=== PATIENT | female | born 1985 | race Caucasian/White ===

== ENCOUNTER → 2016-10-28 | Outpatient (CLI) | payer OTHER, MEDICAID ==
[~2016-10-28] MED LIST: AUGM875T27 PO; CYMB60CA3 PO; EMOQTAB PO; HYDR200T3 PO; LEXA1TAB PO; MYLI40DR PO; NEUR100C PO; OXYC15TA76 PO; PROA1AER INH; SING10TA32 PO; TRAZ100T4 PO; TYLE167L PO; ZYRT10TA2 PO; [UNRECOGNIZED DRUG - CODE] PO
[2016-10-28 20:21] LABS: COMPLEMENT C3 136 MG/DL (90-180); COMPLEMENT C4 26.7 MG/DL (10-40); IMMUNOGLOBULIN G 1390 MG/DL (681-1648); IMMUNOGLOBULIN M 52.6 MG/DL (40-230)
[2016-10-28 20:53] LABS: IMMUNOGLOBULIN E < 3.6 IU/ML (<100)
[2016-11-02 08:45] LABS: ALPHA 1 ANTITRYPSIN 249 mg/dL (90-200); D001-IgE D pteronyssinus <0.10 kU/L (Class 0); E001-IgE Cat Epith/Dander < 0.10 kU/L (Class 0); E005-IgE Dog Dander < 0.10 kU/L (Class 0); F002-IgE Milk < 0.10 kU/L (Class 0); F004-IgE Wheat < 0.10 kU/L (Class 0); F013-IgE Peanut < 0.10 kU/L (Class 0); F014-IgE Soybean < 0.10 kU/L (Class 0); F026-IgE Pork < 0.10 kU/L (Class 0); F027-IgE Beef < 0.10 kU/L (Class 0); F245-IgE Egg, Whole < 0.10 kU/L (Class 0); FX02-IgE Food Mix (Sea Foods) Negative (.); G002-IgE Bermuda Grass < 0.10 kU/L (Class 0); G008-IgE Kentucky Bluegrass < 0.10 kU/L (Class 0); M001-IgE Penicillium chrysogen < 0.10 kU/L (Class 0); M002 IgE Cladosporium herbaru < 0.10 kU/L (Class 0); M003 IgE Aspergillus fumigatu < 0.10 kU/L (Class 0); M006-IgE Alternaria alternata < 0.10 kU/L (Class 0); T001-IgE Maple/Box Elder < 0.10 kU/L (Class 0); T003-IgE Common Silver Birch < 0.10 kU/L (Class 0); T007-IgE Oak, White < 0.10 kU/L (Class 0); T008-IgE Elm, American < 0.10 kU/L (Class 0); T015-IgE Ash, White < 0.10 kU/L (Class 0); T041-IgE Hickory, White < 0.10 kU/L (Class 0); W001-IgE Ragweed, Short < 0.10 kU/L (Class 0); W009-IgE Plantain, English < 0.10 kU/L (Class 0); W014-IgE Pigweed, Rough < 0.10 kU/L (Class 0); W018-IgE Sheep Sorrel < 0.10 kU/L (Class 0)
== END ==
LOC: M WUC 17:30
PROVIDERS: ATTEND Allergy & Immunology
DX: J30.89 Other allergic rhinitis (principal); J30.2 Other seasonal allergic rhinitis

== ENCOUNTER → 2018-07-16 | Outpatient (CLI) | payer OTHER, MEDICAID ==
[2018-07-16 19:15] LABS: GOLD SPEC TUBE RECIEVED
[2018-07-16 19:54] LABS: COMPLEMENT C3 146 MG/DL (90-180); IMMUNOGLOBULIN G 1360 MG/DL (681-1648); IMMUNOGLOBULIN M 49 MG/DL (40-230)
[2018-07-16 19:55] LABS: IMMUNOGLOBULIN E 7.5 IU/ML (<100)
[2018-07-20 00:07] LABS: ALPHA 1 ANTITRYPSIN 186 mg/dL (90-200)
[2018-07-20 00:07] LABS: D001-IgE D pteronyssinus <0.10 kU/L (Class 0); E001-IgE Cat Epith/Dander < 0.10 kU/L (Class 0); E005-IgE Dog Dander < 0.10 kU/L (Class 0); F002-IgE Milk < 0.10 kU/L (Class 0); F004-IgE Wheat < 0.10 kU/L (Class 0); F013-IgE Peanut < 0.10 kU/L (Class 0); F014-IgE Soybean < 0.10 kU/L (Class 0); F026-IgE Pork < 0.10 kU/L (Class 0); F027-IgE Beef < 0.10 kU/L (Class 0); F245-IgE Egg, Whole < 0.10 kU/L (Class 0); FX02-IgE Food Mix (Sea Foods) Negative (.); G002-IgE Bermuda Grass < 0.10 kU/L (Class 0); G008-IgE Kentucky Bluegrass < 0.10 kU/L (Class 0); M001-IgE Penicillium chrysogen < 0.10 kU/L (Class 0); M002 IgE Cladosporium herbaru < 0.10 kU/L (Class 0); M003 IgE Aspergillus fumigatu < 0.10 kU/L (Class 0); M006-IgE Alternaria alternata < 0.10 kU/L (Class 0); T001-IgE Maple/Box Elder < 0.10 kU/L (Class 0); T003-IgE Common Silver Birch < 0.10 kU/L (Class 0); T006-IgE Cedar, Mountain < 0.10 kU/L (Class 0); T007-IgE Oak, White < 0.10 kU/L (Class 0); T008-IgE Elm, American < 0.10 kU/L (Class 0); T015-IgE Ash, White < 0.10 kU/L (Class 0); T041-IgE Hickory, White < 0.10 kU/L (Class 0); T070-IgE White Mulberry < 0.10 kU/L (Class 0); W001-IgE Ragweed, Short < 0.10 kU/L (Class 0); W009-IgE Plantain, English < 0.10 kU/L (Class 0); W014-IgE Pigweed, Rough < 0.10 kU/L (Class 0); W018-IgE Sheep Sorrel < 0.10 kU/L (Class 0)
== END ==
LOC: M LAB 17:29
DX: J30.81 Allergic rhinitis due to animal (cat) (dog) hair and dander (principal); J45.991 Cough variant asthma; J30.89 Other allergic rhinitis; H10.45 Other chronic allergic conjunctivitis; R05 Cough
CPT/HCPCS: 82785

== ENCOUNTER → 2020-08-05 | Outpatient (CLI) | payer OTHER, MEDICAID ==
[~2020-08-05] MED LIST changes: -AUGM875T27 PO; +AUGM875T28 PO; +OXYC-1 PO; -OXYC15TA76 PO; -PROA1AER INH; +PROAAER10 INH; +TRAZ-257 PO; -TRAZ100T4 PO; +ZYRT10CA5 PO; -ZYRT10TA2 PO
== END ==
LOC: M LABSMTC 13:53
PROVIDERS: ATTEND Family Medicine
DX: Z20.828 Contact with and (suspected) exposure to other viral communicable diseases (principal)

== ENCOUNTER → 2020-12-23 | Outpatient (CLI) | payer OTHER, MEDICAID ==
--- NOTE | 2020-12-23 18:13 | REP ---
INDICATION: SHORTNESS OF BREATH. COMPARISON: PA and lateral chest dated 05/01/2015. TECHNIQUE: Upright PA and lateral chest. FINDINGS: The lung danielson are clear. Cardiac size is normal. The bassem, mediastinum and skeletal structures are unremarkable. IMPRESSION: Essentially negative PA and lateral chest There is no interval change. <Electronically signed by Dominik Keith > 12/23/20 [id number]
== END ==
LOC: M RAD 17:17
PROVIDERS: ATTEND Internal Medicine Rheumatology
DX: R06.02 Shortness of breath (principal)

== ENCOUNTER → 2021-01-07 | Outpatient (CLI) | payer OTHER, MEDICAID ==
--- NOTE | 2021-01-07 09:09 | PFTRPT ---
Height: 63.00 Inches Weight: 178.00 Lbs BSA: 1.84 Diagnosis: R06.02 DATE: 01/07/2021 ORDERING PHYSICIAN: Dagoberto Raygoza MD Pre and post bronchodilator studies have excellent technical quality. Forced vital capacity is reduced. FEV1 is in proportion. Obstructive index is therefore normal. Expiratory limit of the flow-volume loop suggests some nonspecific limitation. Total lung capacity is normal. Residual volume is borderline for air trapping. Diffusing capacity although minimally reduced is appropriate for alveolar volume. Hemoglobin is acceptable at 12.1. Airway resistance and conductance are normal. IMPRESSION: Cannot rule out borderline air trapping with some nonspecific limitations. Please correlate clinically. MTDD
== END ==
LOC: M CARPUL 08:34
PROVIDERS: ATTEND Internal Medicine Pulmonary Disease
DX: R06.02 Shortness of breath (principal)

== ENCOUNTER → 2021-01-12 | Outpatient (CLI) | payer OTHER, MEDICAID ==
[~2021-01-12] MED LIST changes: +METHACHOLINE KIT (J7674) INH ONE
--- NOTE | 2021-01-12 07:38 | PFTRPT ---
Height: 63.00 Inches Weight: 178.00 Lbs BSA: 1.84 Diagnosis: R06.02 DATE: 01/12/2021 ORDERED BY: Dagoberto Raygoza M.D. QUALITY: Study of excellent technical quality. PROCEDURE: Under protocol, methacholine was administered. Even after a maximal dose of 25 mg or 188.875 CDUs, no provocation dose ever achieved. Flow rates did return to baseline after bronchodilator administration. IMPRESSION: Negative methacholine challenge study. MTDD
== END ==
LOC: M CARPUL 06:42
PROVIDERS: ATTEND Internal Medicine Pulmonary Disease
DX: R06.02 Shortness of breath (principal)

== ENCOUNTER 2021-07-29 09:47 | Emergency (ER) | payer OTHER, MEDICAID ==
[~2021-07-29] VITALS: Ht 160 cm; Wt 85.7 kg
[~2021-07-29 09:47] MED LIST changes: -CYMB60CA3 PO; +CYMB60CA4 PO; -METHACHOLINE KIT (J7674) INH ONE
[2021-07-29 11:14] LABS: RSV AMPLIFICATION NEGATIVE (NEGATIVE)
[2021-07-29 13:39] LABS: BASO # 0.1 10^3/uL (0.0-0.2); BASO % 0.6 % (0.0-1.0); EOS % 0.4 % (0.0-3.0); HEMATOCRIT 42.9 % (36.0-47.0); HEMOGLOBIN 14.2 g/dl (12.0-15.5); LYMPH # 2.9 10^3/uL (1.5-5.0); LYMPH % 27.4 % (24.0-44.0); MEAN CORPUSCULAR HGB CONC 33.1 g/dl (32.0-36.5); MEAN CORPUSCULAR VOLUME 84.4 fl (80.0-96.0); MONO # 0.7 10^3/uL (0.0-0.8); NEUTROPHILS # 6.7 10^3/uL (1.5-8.5); NEUTROPHILS % 64.3 % (36.0-66.0); PLATELET COUNT, AUTOMATED 392 10^3/uL (150-450); RED BLOOD COUNT 5.08 10^6/uL (4.00-5.40); WHITE BLOOD COUNT 10.4 10^3/uL (4.0-10.0)
[2021-07-29] MEDS ORDERED: NS 1,000 ML IV ONE (13:40)
[2021-07-29 14:08] LABS: HCG, SERUM QUALITATIVE NEGATIVE (NEGATIVE)
[2021-07-29 14:20] LABS: ALBUMIN 3.3 GM/DL (3.2-5.2); ALT/SGPT 20 U/L (12-78); BILIRUBIN,DIRECT 0.2 MG/DL (0.0-0.2); BILIRUBIN,TOTAL 0.6 MG/DL (0.2-1.0); BLOOD UREA NITROGEN 8 MG/DL (7-18); CARBON DIOXIDE LEVEL 25 MEQ/L (21-32); CHLORIDE LEVEL 105 MEQ/L (98-107); CK-MB VALUE MASS < 1.0 NG/ML (<3.6); CPK CREATINE PHOSPHOKINASE 140 U/L (26-192); CREATININE FOR GFR 0.87 MG/DL (0.55-1.30); FREE T4 1.37 NG/DL (0.76-1.46); GLOMERULAR FILTRATION RATE > 60.0 (>60); GLUCOSE, FASTING 75 MG/DL (70-100); MB/CK RELATIVE INDEX 0.71 (< OR =4); POTASSIUM SERUM 3.9 MEQ/L (3.5-5.1); SODIUM LEVEL 140 MEQ/L (136-145); THYROID STIMULATING HORMONE 0.779 uIU/ML (0.358-3.740); TOTAL PROTEIN 7.1 GM/DL (6.4-8.2); TROPONIN I < 0.02 NG/ML (< 0.10)
[2021-07-29] MEDS ORDERED: PROMETHAZINE INJ 25 MG/ML VIAL (J2550) IV ONE (16:05)
--- NOTE | 2021-07-29 16:46 | REPVR ---
PROCEDURE INFORMATION: Exam: CT Head Without Contrast Exam date and time: 07/29/2021 3:25 PM Age: 36 years old Clinical indication: Dizziness; Additional info: Dizziness, nausea TECHNIQUE: Imaging protocol: Computed tomography of the head without contrast. Radiation optimization: All CT scans at this facility use at least one of these dose optimization techniques: automated exposure control; mA and/or kV adjustment per patient size (includes targeted exams where dose is matched to clinical indication); or iterative reconstruction. COMPARISON: No relevant prior studies available. FINDINGS: Brain: There is encephalomalacia in the right temporal postoperative bed. No acute cerebral infarction or intracranial hemorrhage. Cerebral ventricles: No ventricular enlargement. Paranasal sinuses: There is no significant mucoperiosteal thickening or air-fluid levels in the visualized portion of the paranasal sinuses. Mastoid air cells: The middle ear cavities and mastoid air cells are clear. Bones/joints: Right frontotemporal craniotomy. Soft tissues: Unremarkable. IMPRESSION: No acute findings on this noncontrast examination. Electronically signed by: Mago Helton On 07/29/2021 16:45:55 PM
[2021-07-29 17:31] LABS: HEMOGLOBIN A1c 5.1 %
[2021-07-29 17:59] VITALS: BP 122/69
--- NOTE | 2021-07-30 20:42 | ECGEPIP ---
[facility] - ED Test Date: 2021-07-29 Pat Name: EFE DE LA O Department: Room: - Gender: Female Sales Representative [facility]: MARKELABRAHAM : 1985 Requested By: VANESSA Alfaro PA-C Order Number: [id number] Reading MD: Maral Huizar Measurements Intervals [place] Rate: 100 P: 16 TX: 146 QRS: 26 QRSD: 88 T: 13 QT: 388 QTc: 500 Interpretive Statements Normal sinus rhythm NSTTW abnormalities increased rate 05/01/15 Electronically Signed on 07-30-2021 20:42:46 EDT by Maral Huizar
== END 2021-07-29 18:20 | disposition home or self-care (01) ==
LOC: M ED 09:47
DX: R42 Dizziness and giddiness (principal); E16.2 Hypoglycemia, unspecified; J45.909 Unspecified asthma, uncomplicated; R56.9 Unspecified convulsions; J30.2 Other seasonal allergic rhinitis; Z79.899 Other long term (current) drug therapy; Z88.8 Allergy status to other drugs, medicaments and biological substances

== ENCOUNTER → 2021-08-10 | Outpatient (CLI) | payer OTHER, MEDICAID ==
--- NOTE | 2021-08-10 15:35 | REP ---
INDICATION: SHORTNESS OF BREATH WITH PALPITATIONS COMPARISON: 12/23/2020 TECHNIQUE: PA and lateral. FINDINGS: The mediastinum and cardiac silhouette are normal. The lung danielson are clear and without acute consolidation, effusion, or pneumothorax. The skeletal structures are intact and normal. IMPRESSION: No acute cardiopulmonary process. <Electronically signed by Chas Baker > 08/10/21 [id number]
== END ==
LOC: M WUC 15:05
PROVIDERS: ATTEND Physician Assistant
DX: R06.02 Shortness of breath (principal); R00.2 Palpitations; R53.83 Other fatigue

== ENCOUNTER → 2021-09-22 | Outpatient (CLI) | payer OTHER, MEDICAID ==
--- NOTE | 2021-09-22 09:06 | REP ---
INDICATION: RUQ ABD PAIN W/ NAUSEA W/ H/O MONO COMPARISON: 05/01/2015 TECHNIQUE: Real time B-mode hand scale ultrasound examination using curved array transducer. FINDINGS: Liver, spleen, and visualized portions of the pancreas are normal in contour, size, echogenicity, and overall appearance. No focal hepatic, splenic or pancreatic lesions are identified. Gallbladder is not visualized. No biliary ductal dilatation is appreciated and the common bile duct measures 2.5 mm in diameter. The bilateral kidneys are normal in reniform shape without hydronephrosis or obvious abnormality. Right kidney measures 9.7 x 4.3 x 3.9 cm. Left kidney measures 8.9 x 4.1 x 4.2 cm. Abdominal aorta appears normal and measures 1.7 cm maximal diameter. No ascites. IMPRESSION: 1. Findings suggest prior cholecystectomy. 2. Otherwise normal complete abdominal ultrasound. <Electronically signed by Chas Baker > 09/22/21 [id number]
== END ==
LOC: M RAD 06:54
PROVIDERS: ATTEND Physician Assistant
DX: R10.11 Right upper quadrant pain (principal); R11.0 Nausea; Z86.19 Personal history of other infectious and parasitic diseases

== ENCOUNTER → 2021-11-25 | Outpatient (CLI) | payer OTHER, MEDICAID ==
[2021-11-25 17:56] LABS: BASO # 0.1 10^3/uL (0.0-0.2); BASO % 0.5 % (0.0-1.0); EOS # 0.2 10^3/uL (0.0-0.5); EOS % 1.4 % (0.0-3.0); HEMATOCRIT 40.9 % (36.0-47.0); HEMOGLOBIN 13.6 g/dl (12.0-15.5); LYMPH # 3.9 10^3/uL (1.5-5.0); LYMPH % 36.7 % (24.0-44.0); MEAN CORPUSCULAR HEMOGLOBIN 28.6 pg (27.0-33.0); MEAN CORPUSCULAR HGB CONC 33.3 g/dl (32.0-36.5); MEAN CORPUSCULAR VOLUME 85.9 fl (80.0-96.0); MONO # 0.9 10^3/uL (0.0-0.8); NEUTROPHILS # 5.7 10^3/uL (1.5-8.5); NEUTROPHILS % 53.2 % (36.0-66.0); PLATELET COUNT, AUTOMATED 432 10^3/uL (150-450); RED BLOOD COUNT 4.76 10^6/uL (4.00-5.40); WHITE BLOOD COUNT 10.8 10^3/uL (4.0-10.0)
[2021-11-25 18:32] LABS: ALBUMIN 3.6 GM/DL (3.2-5.2); ALT/SGPT 29 U/L (12-78); BILIRUBIN,DIRECT < 0.1 MG/DL (0.0-0.2); BILIRUBIN,TOTAL 0.3 MG/DL (0.2-1.0); TOTAL PROTEIN 7.3 GM/DL (6.4-8.2)
== END ==
LOC: M LAB 17:19
PROVIDERS: ATTEND Podiatrist Foot & Ankle Surgery
DX: B35.1 Tinea unguium (principal)

== ENCOUNTER 2022-04-30 12:24 | Emergency (ER) | payer OTHER, MEDICAID ==
[~2022-04-30] VITALS: Ht 160 cm; Wt 85.0 kg
[2022-04-30] MEDS ORDERED: ARAV1TAB PO (15:06)
[2022-04-30] MEDS ORDERED: ISIB1TAB PO (15:13)
[2022-04-30] MEDS ORDERED: SUCR1TAB56 (15:13)
[2022-04-30] MEDS ORDERED: TERB250T91 PO (15:13)
[2022-04-30] MEDS ORDERED: OMEP40CA5 PO (15:13)
[2022-04-30] MEDS ORDERED: LEXA1TAB PO (15:13)
[2022-04-30] MEDS ORDERED: DICL1GEL3 (15:13)
[2022-04-30] MEDS ORDERED: PROBCAP14 PO (15:13)
[2022-04-30 15:38] LABS: BASO # 0.1 10^3/uL (0.0-0.2); BASO % 0.5 % (0.0-1.0); EOS % 0.1 % (0.0-3.0); HEMATOCRIT 47.2 % (36.0-47.0); HEMOGLOBIN 15.3 g/dl (12.0-15.5); LYMPH % 10.2 % (24.0-44.0); MEAN CORPUSCULAR HEMOGLOBIN 27.2 pg (27.0-33.0); MEAN CORPUSCULAR HGB CONC 32.4 g/dl (32.0-36.5); MONO # 0.4 10^3/uL (0.0-0.8); MONO % 3.5 % (2.0-8.0); NEUTROPHILS # 8.7 10^3/uL (1.5-8.5); NEUTROPHILS % 85.4 % (36.0-66.0); PLATELET COUNT, AUTOMATED 444 10^3/uL (150-450); RED BLOOD COUNT 5.62 10^6/uL (4.00-5.40); WHITE BLOOD COUNT 10.2 10^3/uL (4.0-10.0)
[2022-04-30] MEDS ORDERED: ONDANSETRON 4MG 2ML VIAL IV ONE (16:15)
[2022-04-30] MEDS ORDERED: NS 1,000 ML IV ONE (16:15)
[2022-04-30 16:23] LABS: ALBUMIN 3.7 GM/DL (3.2-5.2); BILIRUBIN,DIRECT 0.1 MG/DL (0.0-0.2); BILIRUBIN,TOTAL 0.4 MG/DL (0.2-1.0)
[2022-04-30] MEDS ORDERED: PROMETHAZINE 25MG/ML 1ML VIAL IV ONE (18:15)
[2022-04-30 18:45] VITALS: BP 134/73
[2022-04-30] MEDS ORDERED: ACETAMINOPHEN TAB 650MG DOSE (2X325MG) PO ONE (18:55)
[2022-04-30 20:08] LABS: RSV AMPLIFICATION NEGATIVE (NEGATIVE)
[2022-04-30 20:27] LABS: APPEARANCE, URINE HAZY (CLEAR); BACTERIA, URINE AUTO NEGATIVE (NEGATIVE); BILIRUBIN, URINE AUTO NEGATIVE (NEGATIVE); BLOOD, URINE BLOOD NEGATIVE (NEGATIVE); COLOR, URINE AMBER (YELLOW); GLUCOSE, URINE (UA) AUTO NEGATIVE (NEGATIVE); KETONE, URINE AUTO 1+ mg/dL (NEGATIVE); LEUKOCYTE ESTERASE, URINE AUTO NEGATIVE (NEGATIVE); MUCUS, URINE SMALL (NEGATIVE); NITRITE, URINE AUTO NEGATIVE (NEGATIVE); PROTEIN, URINE AUTO 1+ mg/dL (NEGATIVE); RBC, URINE AUTO 2 /HPF (0-3); SPECIFIC GRAVITY URINE AUTO 1.025 (1.002-1.035); SQUAMOUS EPITHELIAL CELL UR AU 1 /HPF (0-6); UROBILINOGEN, URINE AUTO 0.2 mg/dL (0.0-2.0); WBC, URINE AUTO 2 /HPF (0-3)
[2022-04-30] MEDS ORDERED: PROM25TA12 PO (20:53)
== END 2022-04-30 21:54 | disposition home or self-care (01) ==
LOC: M ED 12:24
DX: R11.2 Nausea with vomiting, unspecified (principal); M19.90 Unspecified osteoarthritis, unspecified site; J45.909 Unspecified asthma, uncomplicated; Z95.5 Presence of coronary angioplasty implant and graft; J30.2 Other seasonal allergic rhinitis; Z88.8 Allergy status to other drugs, medicaments and biological substances
CPT/HCPCS: 71045; 80047; 80076; 81001; 83690; 84702; 85025; 87631; 96361; 96374; 96375; 99284; J2405; J2550

== ENCOUNTER 2022-10-03 09:08 | Emergency (ER) | payer OTHER, MEDICAID ==
[~2022-10-03] VITALS: Ht 160 cm; Wt 84.9 kg
[~2022-10-03 09:08] MED LIST changes: +ARAV1TAB PO; +DICL1GEL3; +ISIB1TAB PO; +OMEP40CA5 PO; +PROBCAP14 PO; +PROM25TA12 PO; +SUCR1TAB56; +TERB250T91 PO
[2022-10-03] MEDS ORDERED: CHOL4POW26 (09:20)
[2022-10-03] MEDS ORDERED: ONDANSETRON 4MG 2ML VIAL IV ONE (11:25)
[2022-10-03] MEDS ORDERED: NS 1,000 ML IV ONE (11:25)
[2022-10-03 12:01] LABS: BASO % 0.4 % (0.0-1.0); HEMATOCRIT 46.5 % (36.0-47.0); HEMOGLOBIN 15.5 g/dl (12.0-15.5); LYMPH # 1.3 10^3/uL (1.5-5.0); LYMPH % 17.3 % (24.0-44.0); MEAN CORPUSCULAR HEMOGLOBIN 27.1 pg (27.0-33.0); MEAN CORPUSCULAR HGB CONC 33.3 g/dl (32.0-36.5); MEAN CORPUSCULAR VOLUME 81.3 fl (80.0-96.0); MONO # 0.6 10^3/uL (0.0-0.8); MONO % 7.6 % (2.0-8.0); NEUTROPHILS # 5.5 10^3/uL (1.5-8.5); NEUTROPHILS % 74.4 % (36.0-66.0); PLATELET COUNT, AUTOMATED 463 10^3/uL (150-450); RED BLOOD COUNT 5.72 10^6/uL (4.00-5.40); WHITE BLOOD COUNT 7.4 10^3/uL (4.0-10.0)
[2022-10-03 12:21] LABS: LIPASE 84 U/L (12-53)
[2022-10-03 12:23] LABS: ALBUMIN 3.5 G/DL (3.2-5.2); ALKALINE PHOSPHATASE 131 U/L (46-116); ALT/SGPT 27 U/L (7.0-40); AST/SGOT 44 U/L (<34); BILIRUBIN,TOTAL 0.3 MG/DL (0.3-1.2); BLOOD UREA NITROGEN 10 MG/DL (9-23); CARBON DIOXIDE LEVEL 24 MMOL/L (20-31); CHLORIDE LEVEL 102 MMOL/L (98-107); CREATININE FOR GFR 0.68 MG/DL (0.55-1.30); GLOMERULAR FILTRATION RATE > 60.0 (>60); GLUCOSE, FASTING 105 MG/DL (60-100); POTASSIUM SERUM 4.2 MMOL/L (3.5-5.1); SODIUM LEVEL 137 MMOL/L (136-145); TOTAL PROTEIN 7.8 G/DL (5.7-8.2)
[2022-10-03 12:26] LABS: HCG, SERUM QUANTITATIVE < 2.6 MIU/ML (<4.2)
[2022-10-03] MEDS ORDERED: PROM25TA12 PO (14:28)
[2022-10-03 14:34] VITALS: BP 132/84
== END 2022-10-03 14:47 | disposition home or self-care (01) ==
LOC: M ED 09:08
DX: K52.9 Noninfective gastroenteritis and colitis, unspecified (principal); Z88.8 Allergy status to other drugs, medicaments and biological substances
CPT/HCPCS: 80053; 83690; 84702; 85025; 87428; 87507; 96361; 96374; 99284; J2405

== ENCOUNTER → 2023-03-24 | Outpatient (REF) | payer OTHER, MEDICAID ==
[~2023-03-24] MED LIST changes: +CHOL4POW26; -HYDR200T3 PO; +HYDR200T46 PO; +MONT-5 PO; -SING10TA32 PO
[2023-03-24 17:17] LABS: HEMATOCRIT 44.4 % (36.0-47.0); HEMOGLOBIN 13.9 g/dl (12.0-15.5); MEAN CORPUSCULAR HEMOGLOBIN 26.9 pg (27.0-33.0); MEAN CORPUSCULAR HGB CONC 31.3 g/dl (32.0-36.5); MEAN CORPUSCULAR VOLUME 85.9 fl (80.0-96.0); PLATELET COUNT, AUTOMATED 432 10^3/uL (150-450); RED BLOOD COUNT 5.17 10^6/uL (4.00-5.40); WHITE BLOOD COUNT 9.1 10^3/uL (4.0-10.0)
[2023-03-24 17:22] LABS: ALKALINE PHOSPHATASE 154 U/L (46-116); ALT/SGPT 13 U/L (7.0-40); AST/SGOT 18 U/L (<34); BILIRUBIN,TOTAL 0.6 MG/DL (0.3-1.2); BLOOD UREA NITROGEN 10 MG/DL (9-23); CARBON DIOXIDE LEVEL 32 MMOL/L (20-31); CHLORIDE LEVEL 106 MMOL/L (98-107); CREATININE FOR GFR 0.77 MG/DL (0.55-1.30); GLOMERULAR FILTRATION RATE > 60.0 (>60); GLUCOSE, FASTING 98 MG/DL (60-100); POTASSIUM SERUM 4.7 MMOL/L (3.5-5.1); SODIUM LEVEL 141 MMOL/L (136-145); TOTAL PROTEIN 7.2 G/DL (5.7-8.2)
== END ==
LOC: M LAB REF 16:23
PROVIDERS: ATTEND Physician Assistant
DX: R11.0 Nausea (principal); R19.7 Diarrhea, unspecified

== ENCOUNTER 2023-03-27 11:48 | Emergency (ER) | payer OTHER, MEDICAID ==
[~2023-03-27] VITALS: Ht 160 cm; Wt 86.5 kg
[2023-03-27] MEDS ORDERED: NS 1,000 ML IV ONE (14:40)
[2023-03-27] MEDS ORDERED: PROMETHAZINE 25MG/ML 1ML VIAL IV ONE (14:40)
[2023-03-27] MEDS ORDERED: MAALOX 30 ML SUSP *UDC PO ONE (14:40)
[2023-03-27 15:54] LABS: BASO # 0.1 10^3/uL (0.0-0.2); BASO % 0.5 % (0.0-1.0); HEMATOCRIT 44.5 % (36.0-47.0); HEMOGLOBIN 14.4 g/dl (12.0-15.5); LYMPH # 2.7 10^3/uL (1.5-5.0); LYMPH % 21.3 % (24.0-44.0); MEAN CORPUSCULAR HEMOGLOBIN 27.2 pg (27.0-33.0); MEAN CORPUSCULAR HGB CONC 32.4 g/dl (32.0-36.5); MEAN CORPUSCULAR VOLUME 84.1 fl (80.0-96.0); MONO # 0.9 10^3/uL (0.0-0.8); MONO % 7.2 % (2.0-8.0); NEUTROPHILS # 8.8 10^3/uL (1.5-8.5); NEUTROPHILS % 70.7 % (36.0-66.0); PLATELET COUNT, AUTOMATED 432 10^3/uL (150-450); RED BLOOD COUNT 5.29 10^6/uL (4.00-5.40); WHITE BLOOD COUNT 12.4 10^3/uL (4.0-10.0)
[2023-03-27 17:48] LABS: LIPASE 29 U/L (12-53)
[2023-03-27 17:50] LABS: ALBUMIN 3.6 G/DL (3.2-5.2); ALKALINE PHOSPHATASE 134 U/L (46-116); ALT/SGPT 19 U/L (7.0-40); AST/SGOT 13 U/L (<34); BILIRUBIN,DIRECT 0.2 MG/DL (<0.4); BILIRUBIN,TOTAL 0.6 MG/DL (0.3-1.2); BLOOD UREA NITROGEN 10 MG/DL (9-23); CALCIUM LEVEL 8.9 MG/DL (8.5-10.1); CARBON DIOXIDE LEVEL 28 MMOL/L (20-31); CHLORIDE LEVEL 104 MMOL/L (98-107); CK-MB VALUE MASS < 1.0 NG/ML (<3.6); CREATININE FOR GFR 0.71 MG/DL (0.55-1.30); GLOMERULAR FILTRATION RATE > 60.0 (>60); GLUCOSE, FASTING 86 MG/DL (60-100); MAGNESIUM LEVEL 2.2 MG/DL (1.8-2.4); POTASSIUM SERUM 3.6 MMOL/L (3.5-5.1); SODIUM LEVEL 140 MMOL/L (136-145); TOTAL PROTEIN 6.6 G/DL (5.7-8.2)
[2023-03-27 17:52] LABS: FREE T4 1.39 NG/DL (0.89-1.76); THYROID STIMULATING HORMONE 0.763 uIU/ML (0.55-4.78)
[2023-03-27 17:55] LABS: CPK CREATINE PHOSPHOKINASE 51 U/L (34-145); MB/CK RELATIVE INDEX 1.96 (< OR =4)
[2023-03-27 18:33] LABS: APPEARANCE, URINE CLEAR (CLEAR); BACTERIA, URINE AUTO 1+ (NEGATIVE); BILIRUBIN, URINE AUTO NEGATIVE (NEGATIVE); BLOOD, URINE BLOOD NEGATIVE (NEGATIVE); COLOR, URINE YELLOW (YELLOW); GLUCOSE, URINE (UA) AUTO NEGATIVE (NEGATIVE); KETONE, URINE AUTO 1+ mg/dL (NEGATIVE); LEUKOCYTE ESTERASE, URINE AUTO NEGATIVE (NEGATIVE); MUCUS, URINE SMALL (NEGATIVE); NITRITE, URINE AUTO NEGATIVE (NEGATIVE); PROTEIN, URINE AUTO NEGATIVE (NEGATIVE); RBC, URINE AUTO 1 /HPF (0-3); SPECIFIC GRAVITY URINE AUTO 1.006 (1.002-1.035); SQUAMOUS EPITHELIAL CELL UR AU 1 /HPF (0-6); UROBILINOGEN, URINE AUTO 0.2 mg/dL (0.0-2.0); WBC, URINE AUTO 2 /HPF (0-3)
[2023-03-27] MEDS ORDERED: PROM25TA12 PO (19:41)
[2023-03-27 19:56] VITALS: BP 125/66; TEMP 98.2; O2SAT 96
== END 2023-03-27 20:18 | disposition home or self-care (01) ==
LOC: M ED 11:48
DX: R11.2 Nausea with vomiting, unspecified (principal); J30.2 Other seasonal allergic rhinitis; K21.9 Gastro-esophageal reflux disease without esophagitis; F41.9 Anxiety disorder, unspecified; F32.A Depression, unspecified; Z79.899 Other long term (current) drug therapy; Z88.8 Allergy status to other drugs, medicaments and biological substances
CPT/HCPCS: 36415; 80048; 80076; 81001; 82550; 82553; 83690; 83735; 84439; 84443; 84484; 84702; 85025; 93005; 96361; 96374; 99284; J2550

== ENCOUNTER → 2023-11-02 | Outpatient (REF) | payer OTHER, MEDICAID ==
[~2023-11-02] MED LIST changes: +DICL100G10; -DICL1GEL3
== END ==
LOC: M LAB REF 09:15
PROVIDERS: ATTEND Internal Medicine Gastroenterology
DX: A09 Infectious gastroenteritis and colitis, unspecified (principal); R10.31 Right lower quadrant pain; K59.00 Constipation, unspecified; R11.0 Nausea

== ENCOUNTER → 2024-01-23 | Outpatient (CLI) | payer OTHER, MEDICAID ==
[2024-01-23 13:12] LABS: HEMATOCRIT 43.9 % (36.0-47.0); HEMOGLOBIN 14.9 g/dl (12.0-15.5); MEAN CORPUSCULAR HEMOGLOBIN 28.1 pg (27.0-33.0); MEAN CORPUSCULAR HGB CONC 33.9 g/dl (32.0-36.5); MEAN CORPUSCULAR VOLUME 82.8 fl (80.0-96.0); PLATELET COUNT, AUTOMATED 412 10^3/uL (150-450); WHITE BLOOD COUNT 6.5 10^3/uL (4.0-10.0)
[2024-01-23 13:44] LABS: LIPASE 46 U/L (12-53)
[2024-01-23 14:02] LABS: ALBUMIN 3.9 G/DL (3.2-5.2); ALKALINE PHOSPHATASE 150 U/L (46-116); ALT/SGPT 40 U/L (7.0-40); AST/SGOT 33 U/L (<34); BILIRUBIN,TOTAL 0.5 MG/DL (0.3-1.2); BLOOD UREA NITROGEN < 5 MG/DL (9-23); CALCIUM LEVEL 9.2 MG/DL (8.5-10.1); CARBON DIOXIDE LEVEL 30 MMOL/L (20-31); CHLORIDE LEVEL 101 MMOL/L (98-107); CREATININE FOR GFR 0.75 MG/DL (0.55-1.30); GLOMERULAR FILTRATION RATE > 60.0 (>60); GLUCOSE, FASTING 89 MG/DL (60-100); POTASSIUM SERUM 3.7 MMOL/L (3.5-5.1); SODIUM LEVEL 140 MMOL/L (136-145); TOTAL PROTEIN 7.2 G/DL (5.7-8.2)
== END ==
LOC: M LAB 12:37
PROVIDERS: ATTEND Internal Medicine Gastroenterology
DX: R11.0 Nausea (principal); R10.9 Unspecified abdominal pain

== ENCOUNTER → 2024-03-27 | Outpatient (CLI) | payer OTHER, MEDICAID ==
[2024-03-27 11:51] LABS: BASO # 0.1 10^3/uL (0.0-0.2); BASO % 0.6 % (0.0-1.0); EOS # 0.1 10^3/uL (0.0-0.5); EOS % 0.8 % (0.0-3.0); HEMATOCRIT 44.2 % (36.0-47.0); HEMOGLOBIN 14.1 g/dl (12.0-15.5); LYMPH # 2.5 10^3/uL (1.5-5.0); LYMPH % 25.4 % (24.0-44.0); MEAN CORPUSCULAR HEMOGLOBIN 28.1 pg (27.0-33.0); MEAN CORPUSCULAR HGB CONC 31.9 g/dl (32.0-36.5); MEAN CORPUSCULAR VOLUME 88.2 fl (80.0-96.0); MONO # 0.8 10^3/uL (0.0-0.8); MONO % 7.9 % (2.0-8.0); NEUTROPHILS # 6.3 10^3/uL (1.5-8.5); NEUTROPHILS % 65.1 % (36.0-66.0); PLATELET COUNT, AUTOMATED 401 10^3/uL (150-450); RED BLOOD COUNT 5.01 10^6/uL (4.00-5.40); WHITE BLOOD COUNT 9.6 10^3/uL (4.0-10.0)
[2024-03-27 12:28] LABS: C REACTIVE PROTEIN QUANTITATIV < 0.40 MG/DL (<1.0)
[2024-03-27 12:29] LABS: ALBUMIN 3.5 G/DL (3.2-5.2); ALKALINE PHOSPHATASE 141 U/L (46-116); ALT/SGPT 16 U/L (7.0-40); AST/SGOT < 8 U/L (<34); BILIRUBIN,TOTAL 0.4 MG/DL (0.3-1.2); BLOOD UREA NITROGEN 8 MG/DL (9-23); CALCIUM LEVEL 8.8 MG/DL (8.5-10.1); CARBON DIOXIDE LEVEL 33 MMOL/L (20-31); CHLORIDE LEVEL 105 MMOL/L (98-107); CREATININE FOR GFR 0.74 MG/DL (0.55-1.30); GLOMERULAR FILTRATION RATE > 60.0 (>60); GLUCOSE, FASTING 94 MG/DL (60-100); POTASSIUM SERUM 4.6 MMOL/L (3.5-5.1); SODIUM LEVEL 142 MMOL/L (136-145); TOTAL PROTEIN 6.5 G/DL (5.7-8.2)
[2024-03-27 12:33] LABS: ERYTHROCYTE SEDIMENTATION RATE 14 mm/hr (0-20)
== END ==
LOC: M WUC 08:43
PROVIDERS: ATTEND Physician Assistant
DX: M35.1 Other overlap syndromes (principal); Z79.899 Other long term (current) drug therapy

== ENCOUNTER → 2024-04-11 | Outpatient (CLI) | payer OTHER, MEDICAID ==
[2024-04-11 19:05] LABS: % LABILE ALKALINE PHOSPHATASE 38.2 %
== END ==
LOC: M LAB 16:29
PROVIDERS: ATTEND Internal Medicine Gastroenterology
DX: R74.8 Abnormal levels of other serum enzymes (principal); R11.0 Nausea; R19.7 Diarrhea, unspecified

== ENCOUNTER → 2024-07-12 | Outpatient (REF) | payer OTHER, MEDICAID ==
[2024-07-15 16:33] LABS: ANTI-MITOCHONDRIAL ANTIBODY NEGATIVE (NEGATIVE)
== END ==
LOC: M LABWUC 16:55
PROVIDERS: ATTEND Nurse Practitioner Family
DX: R74.8 Abnormal levels of other serum enzymes (principal); R11.0 Nausea; R19.7 Diarrhea, unspecified

== ENCOUNTER → 2024-08-13 | Outpatient (CLI) | payer OTHER, MEDICAID | LOC: M RAD 08:11 | PROVIDERS: ATTEND Nurse Practitioner Family | DX: R74.8 Abnormal levels of other serum enzymes (principal); R11.0 Nausea; R19.7 Diarrhea, unspecified; K76.0 Fatty (change of) liver, not elsewhere classified; Z90.49 Acquired absence of other specified parts of digestive tract ==

== ENCOUNTER → 2024-09-03 | Outpatient (REF) | payer OTHER, MEDICAID | LOC: M LAB REF 10:16 | PROVIDERS: ATTEND Internal Medicine Gastroenterology | DX: R74.8 Abnormal levels of other serum enzymes (principal); R19.7 Diarrhea, unspecified; R11.0 Nausea ==

== ENCOUNTER → 2024-09-08 | Outpatient (CLI) | payer OTHER, MEDICAID ==
[2024-09-08 10:21] LABS: CHOLESTEROL RISK RATIO 4.12 (<5); HDL CHOLESTEROL 37.8 MG/DL (>40); LDL CHOLESTEROL 94.4 MG/DL (<100); NON-HDL-C 118.2 MG/DL
== END ==
LOC: M LAB 09:26
PROVIDERS: ATTEND Nurse Practitioner Family
DX: E78.2 Mixed hyperlipidemia (principal)

== ENCOUNTER → 2024-09-27 | Outpatient (CLI) | payer OTHER, MEDICAID | LOC: M WHC 07:26 | PROVIDERS: ATTEND Physician Assistant Medical | DX: R92.2 Inconclusive mammogram (principal) ==

== ENCOUNTER 2024-12-10 08:47 | Day surgery (SDC) | payer OTHER, MEDICAID ==
[~2024-12-10] VITALS: Ht 160 cm; Wt 85.5 kg
[~2024-12-10 08:47] MED LIST changes: +CENTCHW4 PO; +CETI-24 PO; +COLE625T PO; +DEBL1TAB PO; +MYCO250C PO; +OMEP-173 PO; +SUCR1ORA PO
[2024-12-10] MEDS: LR 1,000 ML IV SCH (10:12)
[2024-12-10] MEDS ORDERED: propofoL 200 MG/20 ML VIAL As Ordered ONE (11:34)
[2024-12-10] MEDS ORDERED: LIDOCAINE 2% 100MG/5ML SDV (FOR ANES.) As Ordered ONE (11:34)
[2024-12-10] MEDS ORDERED: KETOROLAC 30 MG/ML 1ML VIAL As Ordered ONE (11:34)
[2024-12-10] MEDS ORDERED: ONDANSETRON 4MG 2ML VIAL As Ordered ONE (11:34)
[2024-12-10] MEDS ORDERED: MIDAZOLAM INJ 2MG/2ML VIAL As Ordered ONE (11:35)
[2024-12-10] MEDS: CIPRODEX OTIC SUSP 7.5ML As Ordered ONE (12:02)
[2024-12-10] MEDS ORDERED: fentaNYL 100 MCG/2 ML INJECTION IV PRN (12:15)
[2024-12-10] MEDS ORDERED: oxyCODONE 5MG TAB PO PRN (12:15)
[2024-12-10] MEDS ORDERED: HYDROMORPHONE HCL 0.5 MG/ 0.5 ML SYRINGE IV PRN (12:15)
[2024-12-10] MEDS ORDERED: ONDANSETRON 4MG 2ML VIAL IV PRN (12:15)
[2024-12-10] MEDS ORDERED: LR 1,000 ML IV SCH (12:15)
[2024-12-10 13:17] VITALS: BP 119/70; TEMP 97.7; O2SAT 99
[2024-12-10 15:13] LABS: HEPATITIS B SURFACE ANTIGEN NEGATIVE (NEGATIVE)
[2024-12-10 15:25] LABS: HIV SCREEN CENTAUR SOURCE NEGATIVE (NEGATIVE)
== END 2024-12-10 14:10 | disposition home or self-care (01) ==
LOC: M SDC 08:47
PROVIDERS: ATTEND Otolaryngology
DX: H69.83 Other specified disorders of Eustachian tube, bilateral (principal); G71.00 Muscular dystrophy, unspecified; G62.9 Polyneuropathy, unspecified; M35.1 Other overlap syndromes; J45.909 Unspecified asthma, uncomplicated; Z79.899 Other long term (current) drug therapy; K76.0 Fatty (change of) liver, not elsewhere classified; Z86.69 Personal history of other diseases of the nervous system and sense organs; F41.9 Anxiety disorder, unspecified; F32.A Depression, unspecified; K21.9 Gastro-esophageal reflux disease without esophagitis; Z88.8 Allergy status to other drugs, medicaments and biological substances
CPT/HCPCS: 36415; 69436; 86803; 87340; 87389; J1100; J1885; J2250; J2405

== ENCOUNTER → 2025-01-25 | Outpatient (CLI) | payer OTHER, MEDICAID ==
[2025-01-25 10:02] LABS: ALBUMIN 3.7 G/DL (3.2-5.2); ALKALINE PHOSPHATASE 126 U/L (35-104); ALT/SGPT 23 U/L (7.0-40); AST/SGOT 14 U/L (<34); BILIRUBIN,DIRECT 0.1 MG/DL (<0.4); BILIRUBIN,TOTAL 0.4 MG/DL (0.3-1.2); TOTAL PROTEIN 6.9 G/DL (5.7-8.2)
[2025-01-25 10:06] LABS: HEPATITIS B SURFACE ANTIBODY POSITIVE (POSITIVE)
== END ==
LOC: M LAB 08:23
PROVIDERS: ATTEND Internal Medicine Gastroenterology
DX: R74.8 Abnormal levels of other serum enzymes (principal); K76.0 Fatty (change of) liver, not elsewhere classified; K59.00 Constipation, unspecified; R11.0 Nausea

== ENCOUNTER → 2025-04-01 | Outpatient (CLI) | payer OTHER, MEDICAID ==
[2025-04-01 17:54] LABS: BASO # 0.1 10^3/uL (0.0-0.2); BASO % 0.8 % (0.0-1.0); EOS # 0.1 10^3/uL (0.0-0.5); EOS % 1.2 % (0.0-3.0); LYMPH # 3.0 10^3/uL (1.5-5.0); LYMPH % 32.2 % (24.0-44.0); MONO # 0.8 10^3/uL (0.0-0.8); MONO % 8.9 % (2.0-8.0); NEUTROPHILS # 5.3 10^3/uL (1.5-8.5); NEUTROPHILS % 56.7 % (36.0-66.0); PLATELET COUNT, AUTOMATED 398 10^3/uL (150-450)
[2025-04-01 18:02] LABS: ERYTHROCYTE SEDIMENTATION RATE 23 mm/hr (0-20)
[2025-04-01 18:34] LABS: ALT/SGPT 23 U/L (7.0-40); AST/SGOT 23 U/L (<34); C REACTIVE PROTEIN QUANTITATIV 1.05 MG/DL (<1.0); CREATININE FOR GFR 0.74 MG/DL (0.55-1.30); GLOMERULAR FILTRATION RATE > 90.0 (>58)
== END ==
LOC: M LAB 16:41
PROVIDERS: ATTEND Physician Assistant
DX: M35.1 Other overlap syndromes (principal)

== ENCOUNTER → 2025-05-19 | Outpatient (CLI) | payer OTHER, MEDICAID | LOC: M RAD 13:16 | PROVIDERS: ATTEND Physician Assistant Medical | DX: M25.562 Pain in left knee (principal) ==

== ENCOUNTER → 2025-06-20 | Outpatient (CLI) | payer OTHER, MEDICAID ==
[2025-06-20 14:59] LABS: COMPLEMENT C4 36.5 MG/DL (12-36)
[2025-06-20 15:58] LABS: IMMUNOGLOBULIN E < 2.5 IU/ML (0-378)
== END ==
LOC: M WUC 09:29
PROVIDERS: ATTEND Nurse Practitioner Family
DX: J30.81 Allergic rhinitis due to animal (cat) (dog) hair and dander (principal); J30.89 Other allergic rhinitis; H10.45 Other chronic allergic conjunctivitis; R05.3 Chronic cough

== ENCOUNTER → 2025-09-03 | Outpatient (CLI) | payer OTHER, MEDICAID ==
[2025-09-03 18:28] LABS: MAGNESIUM LEVEL 2.1 MG/DL (1.8-2.4)
[2025-09-03 18:31] LABS: TOTAL 25(OH) VITAMIN D 32.6 NG/ML (20.0-100.0); VITAMIN B12 LEVEL 503.0 PG/ML (211-911)
== END ==
LOC: M WUC 13:21
PROVIDERS: ATTEND Internal Medicine Gastroenterology
DX: R74.8 Abnormal levels of other serum enzymes (principal); K44.9 Diaphragmatic hernia without obstruction or gangrene; K76.0 Fatty (change of) liver, not elsewhere classified; R11.0 Nausea; Z79.899 Other long term (current) drug therapy